=== PATIENT | male | born 1995 | race Caucasian/White ===

== ENCOUNTER 2024-12-31 06:09 | Emergency (ER) | payer OTHER, SELFPAY ==
--- OUTSIDE RECORDS SUMMARY | 2024-12-31 06:12 | XMS_ITS | Clinical Summary ---
Author Organization [facility] Address [address] [address] Care Team Providers Care Certified Dialysis Technician Name Role Phone Unavailable Primary Care Provider Unavailabl e Source Comments You are receiving this document as you are listed as the primary care provider,follow-up provider, or the patient has been referred to you for consultation.This is in compliance with the Medicare andMedicaid EHR Incentive Program,which states Providers who transition their patient to another setting of careor provider of care or refers their patient to another provider of care shouldprovide summary care record for each transition of care or referral. [facility] Allergies No known active allergies Medications No known medications Active Problems No known active problems Social History Tobacco Use Types Packs/Day Years Used Date Smoking Tobacco: Never Assessed Sex and Gender Information Value Date Recorded Sex Assigned at Not on file Gender Identity Not on file Sexual Orientation Not on file Last Filed Vital Signs Vital Sign Reading Time Taken Comments Blood Pressure - - Pulse - - Temperature 36.6 C (97.8 F) 12/18/2022 12:51 PM BASKET TURNER Respiratory Rate - - Oxygen Saturation - - Inhaled Oxygen Concentration - - Weight 102.1 kg (225 lb) 12/18/2022 12:51 PM BASKET TURNER Height 185.4 cm (6' 1) 12/18/2022 12:51 PM BASKET TURNER Body Mass Index 29.69 12/18/2022 12:51 PM BASKET TURNER Plan of Treatment Health Maintenance Due Date Last Done Comments Hep C Screening (Preventive Services) 1995 HepA (2 of 2 - 2-dose series) 12/14/2010 06/13/2010 HIV Screening (Preventive Services) 2011 Adult Preventive Visit 2013 HepB (1) 2014 DTaP/Tdap/Td (7 - Tdap) 08/26/2016 08/26/20, 03/28/2000, 08/11/1996, Additional history exists COVID-19 Vaccine ( season) 2024 Influenza (#1) 2024 01/09/2022, 01/02, 10/16/2019, Additional history exists Zoster/Shingles (1 of 2) 2045 Hib Completed 08/11/1996, 08/1995, 1995, Additional history exists IPV (Polio) Completed 03/28/2000, 08/1995, 1995, Additional history exists MCV4 Aged Out 06/23/2007 No longer eligi ble based on patient's age to complete this topic HPV Vaccine Aged Out No longer eligi ble based on patient's age to complete this topic Pneumococcal Aged Out No longer eligi ble based on patient's age to complete this topic
--- OUTSIDE RECORDS SUMMARY | 2024-12-31 06:12 | XMS_ITS | Encounter Summary ---
Author Organization [facility] Address [address] [place] [address] Phone CareEverywhereSuppor [email or web address] Care Team Providers Care Fern Cutter Name Role Phone Unavailable Primary Care Provider Unavailabl e Encounter Details Date Type Department Care Team (Late st Contact Info) Description 07/01/2024 Claims Summary [facility] [address] [place] [address] Provider, Claims Summary External, [address] [place] [address] Social History Tobacco Use Types Packs/Day Years Used Date Smoking Tobacco: Never Assessed Sex and Gender Information Value Date Recorded Sex Assigned at Not on file 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
--- OUTSIDE RECORDS SUMMARY | 2024-12-31 06:12 | XMS_ITS | Encounter Summary ---
Author Organization [facility] Address [address] [place] [address] Phone CareEverywhereSuppor [email or web address] Care Team Providers Care Hospice Physician Name Role Phone Unavailable Primary Care Provider Unavailabl e Encounter Details Date Type Department Care Team (Late st Contact Info) Description 10/14/2024 Claims Summary [facility] [address] [place] [address] Provider, Claims Summary External, [address] [place] [address] Social History Tobacco Use Types Packs/Day Years Used Date Smoking Tobacco: Never Assessed Stress Answer Date Recorded Stress in your Life Not on file 10/10/2024 Dealing with Stress 3 10/10/2024 Sex and Gender Information Value Date Recorded Sex Assigned at Not on file 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
--- OUTSIDE RECORDS SUMMARY | 2024-12-31 06:12 | XMS_ITS | Patient Health Record ---
Author Organization [facility] Address [address] [place] [address] Support Name Relationship Address Phone Rey Meier Guarantor Unknown Unavailable Reason For Referral No Information Plan Of Treatment No Information Insurance Providers Payer Name Payer Address Payer Phone Subscriber Number Group Number Insured Name Patient Relationship to Insured Coverage Start Date Coverage End Date Local #[employer] [id number] [place] [address] Rey Meier Self - patient is the insured
--- OUTSIDE RECORDS SUMMARY | 2024-12-31 06:12 | XMS_ITS | Encounter Summary ---
Author Organization [facility] Address [address] [place] [address] Phone CareEverywhereSuppor [email or web address] Care Team Providers Care Manager Facility Name Role Phone Unavailable Primary Care Provider Unavailabl e Encounter Details Date Type Department Care Team (Late st Contact Info) Description 11/10/2024 Claims Summary [facility] [address] [place] [address] Provider, Claims Summary External, [address] [place] [address] Social History Tobacco Use Types Packs/Day Years Used Date Smoking Tobacco: Never Assessed Stress Answer Date Recorded Stress in your Life Not on file 10/10/2024 Dealing with Stress 3 10/10/2024 Sex and Gender Information Value Date Recorded Sex Assigned at Not on file Legal Sex Male 12:10 PM CYCLE LIAISON Gender Identity Not on file Sexual Orientation Not on file documented as of this encounter Plan of Treatment Not on file documented as of this encounter Visit Diagnoses Not on filedocumented in this encounter
--- OUTSIDE RECORDS SUMMARY | 2024-12-31 06:12 | XMS_ITS | Encounter Summary ---
Author Organization [facility] Address [address] [place] [address] Phone CareEverywhereSuppor [email or web address] Care Team Providers Care Multimedia Programmer Name Role Phone Unavailable Primary Care Provider Unavailabl e Encounter Details Date Type Department Care Team (Late st Contact Info) Description 12/09/2024 Claims Summary [facility] [address] [place] [address] Provider, Claims Summary External, [address] [place] [address] Social History Tobacco Use Types Packs/Day Years Used Date Smoking Tobacco: Never Assessed Stress Answer Date Recorded Stress in your Life Not on file 10/10/2024 Dealing with Stress 3 10/10/2024 Sex and Gender Information Value Date Recorded Sex Assigned at Not on file 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
--- OUTSIDE RECORDS SUMMARY | 2024-12-31 06:12 | XMS_ITS | Clinical Summary ---
Author Organization [facility] Address [address] [place] [address] Phone CareEverywhereSuppor [email or web address] Care Team Providers Care Janitor Helper Name Role Phone Unavailable Primary Care Provider Unavailabl e Encounters Date Type Department Care Team Description 12/09/2024 Claims Summary [facility] [address] [place] [address] Provider, Claims Summary MD Gavin 11/10/2024 Claims Summary [facility] [address] [place] [address] Provider, Claims Summary MD Gavin 10/14/2024 Claims Summary [facility] [address] [place] [address] Provider, Claims Summary MD Gavin from Last 3 Months Social History Tobacco Use Types Packs/Day Years Used Date Smoking Tobacco: Never Assessed Stress Answer Date Recorded Stress in your Life Not on file 10/10/2024 Dealing with Stress 3 10/10/2024 Sex and Gender Information Value Date Recorded Sex Assigned at Not on file Legal Sex Male 12:[address] JUDGE Gender Identity Not on file Sexual Orientation Not on file Plan of Treatment Not on file
--- OUTSIDE RECORDS SUMMARY | 2024-12-31 06:12 | XMS_ITS | Encounter Summary ---
Author Organization [facility] Address [address] [place] [address] Phone CareEverywhereSuppor Care Team Providers Care Trim Operator Name Role Phone Unavailable Primary Care Provider Unavailabl e Encounter Details Date Type Department Care Team (Late st Contact Info) Description 08/12/2024 Claims Summary [facility] [address] [place] [address] Provider, Claims Summary External, [address] [place] [address] Social History Tobacco Use Types Packs/Day Years Used Date Smoking Tobacco: Never Assessed Sex and Gender Information Value Date Recorded Sex Assigned at Not on file 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
--- OUTSIDE RECORDS SUMMARY | 2024-12-31 06:12 | XMS_ITS | Encounter Summary ---
Author Organization [facility] Address [address] [place] [address] Phone CareEverywhereSuppor [email or web address] Care Team Providers Care Pewter Fabricator Name Role Phone Unavailable Primary Care Provider Unavailabl e Encounter Details Date Type Department Care Team (Late st Contact Info) Description 09/10/2024 Claims Summary [facility] [address] [place] [address] Provider, Claims Summary External, [address] [place] [address] Social History Tobacco Use Types Packs/Day Years Used Date Smoking Tobacco: Never Assessed Sex and Gender Information Value Date Recorded Sex Assigned at Not on file Legal Sex Male 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
[2024-12-31 06:16] VITALS: BP 163/53; PULSE 85; RESP 20; TEMP 37.4; O2SAT 98; BMI 29.5
[2024-12-31] MEDS: IPRAT-ALBUT 0.5-2.5 MG/3 ML NEB 1 NEB IH (07:17)
--- OUTSIDE RECORDS SUMMARY | 2024-12-31 07:28 | XMS_ITS | Encounter Summary ---
Author Organization [facility] Address [address] [place] [address] Phone CareEverywhereSuppor [email or web address] Care Team Providers Care Director Of Instructional Technology Name Role Phone Unavailable Primary Care Provider Unavailabl e Encounter Details Date Type Department Care Team (Late st Contact Info) Description 07/01/2024 Claims Summary [facility] [address] [place] [address] Provider, Claims Summary External, [address] [place] [address] Social History Tobacco Use Types Packs/Day Years Used Date Smoking Tobacco: Never Assessed Sex and Gender Information Value Date Recorded Sex Assigned at Not on file 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
--- OUTSIDE RECORDS SUMMARY | 2024-12-31 07:28 | XMS_ITS | Encounter Summary ---
Author Organization [facility] Address [address] [place] [address] Phone CareEverywhereSuppor [email or web address] Care Team Providers Care Spinning Room Worker Name Role Phone Unavailable Primary Care Provider Unavailabl e Encounter Details Date Type Department Care Team (Late st Contact Info) Description 11/10/2024 Claims Summary [facility] [address] [place] [address] Provider, Claims Summary External, [address] [place] [address] Social History Tobacco Use Types Packs/Day Years Used Date Smoking Tobacco: Never Assessed Stress Answer Date Recorded Stress in your Life Not on file 10/10/2024 Dealing with Stress 3 10/10/2024 Sex and Gender Information Value Date Recorded Sex Assigned at Not on file Legal Sex Male 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
--- OUTSIDE RECORDS SUMMARY | 2024-12-31 07:28 | XMS_ITS | Clinical Summary ---
Author Organization [facility] Address [address], [place] [address] Care Team Providers Care Elevator Repair Mechanic Name Role Phone Unavailable Primary Care Provider [...] for each transition of care or referral. [facility] Allergies No known active allergies Medications No [...] 36.6 C (97.8 F) 12/18/2022 12:51 PM AIRCONDITIONING DRAFTING OFFICER Respiratory Rate - - Oxygen Saturation - - Inhaled Oxygen Concentration - - Weight 102.1 kg (225 lb) 12/18/2022 12:51 PM AIRCONDITIONING DRAFTING OFFICER Height 185.4 cm (6' 1) 12/18/2022 12:51 PM AIRCONDITIONING DRAFTING OFFICER Body Mass Index 29.69 12/18/2022 12:51 PM AIRCONDITIONING DRAFTING OFFICER Plan of Treatment Health Maintenance Due Date [...]
--- OUTSIDE RECORDS SUMMARY | 2024-12-31 07:28 | XMS_ITS | Encounter Summary ---
Author Organization [facility] Address [address] [place] [address] Phone CareEverywhereSuppor Care Team Providers Care Brand Analyst Name Role Phone Unavailable Primary Care Provider Unavailabl e Encounter Details Date Type Department Care Team (Late st Contact Info) Description 09/10/2024 Claims Summary [facility] [address] [place] [address] Provider, Claims Summary External, [address] [place] [address] Social History Tobacco Use Types Packs/Day Years Used Date Smoking Tobacco: Never Assessed Sex and Gender Information Value Date Recorded Sex Assigned at Not on file Legal Sex 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
--- OUTSIDE RECORDS SUMMARY | 2024-12-31 07:28 | XMS_ITS | Clinical Summary ---
Author Organization [facility] Address [address] [place] [address] Phone CareEverywhereSuppor [email or web address] Care Team Providers Care Inside Sales Advisor Name Role Phone Unavailable Primary Care Provider Unavailabl e Encounters Date Type Department Care Team Description 12/09/2024 Claims Summary [facility] [address] [facility] [place] [address] Provider, Claims Summary MD Gavin 11/10/2024 Claims Summary [facility] [address] [facility] [place] [address] Provider, Claims Summary MD Gavin 10/14/2024 Claims Summary [facility] [address] [place] [address] Provider, Claims Summary MD Gavin from Last 3 Months Social History Tobacco Use Types Packs/Day Years Used Date Smoking Tobacco: Never Assessed Stress Answer Date Recorded Stress in your Life Not on file 10/10/2024 Dealing with Stress 3 10/10/2024 Sex and Gender Information Value Date Recorded Sex Assigned at Not on file Legal Sex Male 12:10 PM DIRECTOR MONEY Gender Identity Not on file Sexual Orientation Not on file Plan of Treatment Not on file
--- OUTSIDE RECORDS SUMMARY | 2024-12-31 07:28 | XMS_ITS | Encounter Summary ---
Author Organization [facility] Address [address] [place] [address] Phone CareEverywhereSuppor [email or web address] Care Team Providers Care Individual Pension Consultant Name Role Phone Unavailable Primary Care Provider Unavailabl e Encounter Details Date Type Department Care Team (Late st Contact Info) Description 08/12/2024 Claims Summary [facility] [address] [place] [address] Provider, Claims Summary External, [address] [place] [address] Social History Tobacco Use Types Packs/Day Years Used Date Smoking Tobacco: Never Assessed Sex and Gender Information Value Date Recorded Sex Assigned at Not on file 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
--- OUTSIDE RECORDS SUMMARY | 2024-12-31 07:28 | XMS_ITS | Encounter Summary ---
Author Organization [facility] Address [address] [place] [address] Phone CareEverywhereSuppor [email or web address] Care Team Providers Care Correctional Therapy Director Name Role Phone Unavailable Primary Care Provider Unavailabl e Encounter Details Date Type Department Care Team (Late st Contact Info) Description 10/14/2024 Claims Summary [facility] [address] [place] [address] Provider, Claims Summary External, [address] [place] [address] Social History Tobacco Use Types Packs/Day Years Used Date Smoking Tobacco: Never Assessed Stress Answer Date Recorded Stress in your Life Not on file 10/10/2024 Dealing with Stress 3 10/10/2024 Sex and Gender Information Value Date Recorded Sex Assigned at Not on file Legal Sex Male 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
--- OUTSIDE RECORDS SUMMARY | 2024-12-31 07:28 | XMS_ITS | Encounter Summary ---
Author Organization [facility] Address [address] [place] [address] Phone CareEverywhereSuppor [email or web address] Care Team Providers Care Pilot Control Operator Name Role Phone Unavailable Primary Care Provider Unavailabl e Encounter Details Date Type Department Care Team (Late st Contact Info) Description 12/09/2024 Claims Summary [facility] [address] [place] [address] Provider, Claims Summary External, [address] [place] [address] Social History Tobacco Use Types Packs/Day Years Used Date Smoking Tobacco: Never Assessed Stress Answer Date Recorded Stress in your Life Not on file 10/10/2024 Dealing with Stress 3 10/10/2024 Sex and Gender Information Value Date Recorded Sex Assigned at Not on file Legal Sex Male 12:10 PM BROADCAST CHECKER Gender Identity Not on file Sexual Orientation Not on file documented as of this encounter Plan of Treatment Not on file documented as of this encounter Visit Diagnoses Not on filedocumented in this encounter
--- NOTE | 2024-12-31 07:38 | ED.GENADULT ---
HPI - General Adult General Chief complaint: Cough Stated complaint: feels like something stuck in throat Time Seen by Provider: 12/31/24 06:39 Source: patient Mode of arrival: ambulatory Limitations: no limitations History of Present Illness HPI narrative: 29-year-old male presents the emergency department for evaluation of mucous feeling of congestion in his lower throat. No severe shortness of breath, has a low-grade fever. Some colored mucus. He says that this has happened before. He describes a procedure that sounds suspiciously like a bronchoscopy in the past to look for obstruction. I do not have those records so I can not tell if anything was found. He says that ?the mucus was suctioned out?. It sounds like this may have been a case of tracheitis. He has been told in the past to make sure he gets his flu shot to avoid this happening again. He does not have a history of cystic fibrosis, laryngomalacia as a child or other anatomic obstruction. Low-grade fever noted in triage but no severe respiratory distress. He has not tried any aled-rnd-[id number] treatments to help with his symptoms. Has not done a trial of nebulizer treatments. No prior cardiac history, no long-term medications. Nonsmoker. ROS is notable for the respiratory symptoms only, otherwise denies times 12 systems. Related Data Previous Rx's ?Medication ?Instructions ?Recorded ipratropium 20 mcg-albuterol 100 1 puff inhalation Q4H PRN 12/31/24 mcg/actuation mist for inhalation shortness of breath or wheezing #4 grams Allergies Allergy/AdvReac Type Severity Reaction Status Date / Time No Known Drug Allergies Allergy Verified 12/31/24 06:18 [facility] Medical History Tracheitis ?J04.10 - Acute tracheitis without obstruction (ICD-10) Surgical History No significant past surgical history Social History Smoking Status: Never smoker Second hand tobacco smoke exposure: No How often do you have a drink containing alcohol: never AUDIT-C Alcohol total score: 0 Non-prescribed substance use: denies use Exam Const: Vital Signs, click to edit/add: Vital Signs - 24 hr 12/31/24 06:16 Temperature 99.3 F Pulse Rate [Right Pulse Oximeter] 85 Respiratory Rate 20 Blood Pressure [Ri ght Upper Arm] 163/53 H Pulse Oximetry 98 Oxygen Delivery Me thod Room Air Documenting provider has reviewed patient's vital signs: yes General appearance: cooperative, comfortable and well kempt HENMT: Common normals: normocephalic, moist oral mucous membranes and oropharynx normal Head and scalp: normocephalic Throat: posterior oropharynx normal, tonsils normal and uvula midline Eye: Common normals: PERRL and conjunctivae normal General eye: normal appearance of both eyes Conjunctiva: conjunctiva(e) normal Pupil: PERRL Neck & C-Spine: Common normals: full ROM and no lymphadenopathy Resp: Common normals: normal respiratory effort, no use of accessory muscles and clear to auscultation bilaterally Effort & inspection: able to speak in complete sentences Auscultation: clear to auscultation bilaterally Cardio: Common normals: regular rate, regular rhythm, S1 normal heart sound, S2 normal heart sound and no murmurs Rate: regular rate Rhythm: regular rhythm Heart sounds: S1 normal and S2 normal Psych: Appearance: well kempt Attitude: engaged Activity/motor behavior: appropriate eye contact Insight: insight good Judgement: judgment good Skin: Common normals: no rashes or lesions noted General skin exam: no rashes or lesions noted Course Course ED Course: 29-year-old male with upper airway congestion but no severe shortness of breath, hypoxia, tachycardia or high fevers. I suspect viral illness. I do not have access to any bronchoscopy records but wonder if he has an anatomical obstruction or narrowing of his trachea that would make him more prone to any emergent condition with this. At this time, I would like to start the patient on a DuoNeb, with the intent that if it opium will help clear clogged mucus and the albuterol may help open up the airways slightly. I have given him prescription for Combivent that he may continue using this up to every 4 hours at home if he feels the congestion. I really do not think there is a role for antibiotics as I am not seeing any type of bacterial infection. Alarm symptoms reviewed that would warrant ED presentation. He verbalizes understanding and agreement Vital Signs Vital signs: Initial Vital Signs Respiratory Effort Normal, Spontaneous, Non-Labored 12/31/24 06:15 Respiratory Depth Normal 12/31/24 06:15 Respiratory Pattern Normal 12/31/24 06:15 Vital Signs Temperature 99.3 F 12/31/24 06:16 Pulse Rate 85 12/31/24 06:16 Respiratory Rate 20 12/31/24 06:16 Blood Pressure 163/53 H 12/31/24 06:16 Pulse Oximetry 98 12/31/24 06:16 Oxygen Delivery Method Room Air 12/31/24 06:16 Temperature 99.3 F 12/31/24 06:16 Pulse Rate 85 12/31/24 06:16 Respiratory Rate 20 12/31/24 06:16 Blood Pressure 163/53 H 12/31/24 06:16 Pulse Oximetry 98 12/31/24 06:16 Oxygen Delivery Method Room Air 12/31/24 06:16 Medications Administered Medications: Discontinued Medications Generic Name Dose Route Start Last Admin Trade Name Freq PRN Reason Stop Dose Admin Albuterol/Ipratropium 1 neb 12/31/24 07:12 12/31/24 07:17 Iprat-Albut 0.5-2.5 Mg/3 Ml Neb IH 12/31/24 07:13 1 neb ONCE ONE Administration Discharge Plan Discharge Clinical Impression: Mucus plugging of bronchi Patient Disposition: Home, Self-Care Condition: Stable Additional Instructions: As we discussed, there does not seem to be any sign of pneumonia, low oxygen levels or other dangerous complication from your respiratory infection. Antibiotics are unlikely to be helpful. That mucus plugging sensation can feel very distressing. The best product for it is a mucus busting medication called ipratropium. It comes bundled with an albuterol inhaler to help open up the airway in an inhaler form. Your given a dose of the medication here in the ED through a nebulizer. Note that this will make you cough up a lot of the loosened mucus over the next hour or so. I have sent prescription for another inhaler for you to have at home with this happens and I would recommend that you use it every 6 8 hours or so when you had these chest colds to help clear away the mucus and prevent that severe respiratory distress. Unfortunately, arpu-[id number] medications are unlikely to be helpful but are not harmful if you wish to choose to try them. Come back to the emergency department if there is any severe respiratory distress. Activity Level: No Restrictions Discharge Diet: Regular Prescriptions: New ipratropium-albuterol 20-100 mcg/actuation mist 1 puff inhalation Q4H PRN (Reason: shortness of breath or wheezing) Qty: 4 1RF Follow Up/Referrals: Provider,Not a Local [Primary Care Provider] - Stand Alone Forms: [employer] Info Instructions
== END 2024-12-31 07:47 | disposition home or self-care (01) ==
PROVIDERS: Emergency Provider Family Medicine
DX: J98.09 Other diseases of bronchus, not elsewhere classified (principal)
CPT/HCPCS: 87631; 99283